=== PATIENT | female | born 1985 | race Asian ===

== ENCOUNTER 2017-02-13 06:03 | Inpatient (IN) | payer MEDICAID, OTHER ==
[2017-02-13] MEDS: Lactated Ringers 1,000 ML IV SCH ×5 (06:00→21:31)
[~2017-02-13 06:03] MED LIST: Citric Acid/Sodium Citrate Solution 30 ML Cup PO ONE; Sodium Chloride 0.9% 10 ML Syringe FLUSH PRN; ceFAZolin 2 GM in Premix Bag 1 BAG IV ONE
[2017-02-13] MEDS ORDERED: Oxytocin/Normal Saline 60 UNIT/1,000 ML BAG ONE (07:07)
[2017-02-13] MEDS ORDERED: Acetaminophen/oxyCODONE 325-5 MG Tab PO PRN (09:27)
[2017-02-13] MEDS ORDERED: Misoprostol 400 MCG (4 X 100 MCG TAB) RECTAL PRN (09:27)
[2017-02-13] MEDS ORDERED: Methylergonovine 0.2 MG/1 ML Amp IM PRN (09:27)
[2017-02-13] MEDS ORDERED: Acetaminophen 325 MG Tab PO PRN (09:27)
[2017-02-13] MEDS ORDERED: ePHEDrine 50 MG/ML SDV IVPUSH PRN (09:27)
[2017-02-13] MEDS ORDERED: Naloxone 2 MG/2 ML Syringe IVPUSH PRN (09:27)
[2017-02-13] MEDS ORDERED: Ondansetron 4 MG/2 ML SDV IV PRN (09:27)
[2017-02-13] MEDS ORDERED: diphenhydrAMINE 50 MG/ML SDV IVPUSH PRN (09:27)
[2017-02-13] MEDS ORDERED: Carboprost Tromethamine 250 MCG/1 ML Amp IM ONE (09:27)
[2017-02-13] MEDS: Prenatal Multivitamin with Calcium/Folic Acid/Iron Tab PO SCH (10:44)
[2017-02-13] MEDS: Ferrous Sulfate 325 MG Tab PO SCH ×2 (10:44→20:59)
[2017-02-13] MEDS ORDERED: Oxytocin/Normal Saline 30 UNIT/500 ML BAG IV SCH (11:15)
[2017-02-13] MEDS: Ketorolac 30 MG/ML SDV IVPUSH SCH ×2 (14:59→21:15)
[2017-02-13] MEDS: ceFAZolin 1 GM in Premix Bag 1 BAG IV SCH ×2 (15:00→21:17)
--- NOTE | 2017-02-13 15:27 | OR ---
DATE: 02/13/2017 PREPROCEDURE DIAGNOSES: 1. 39 and 4/7 weeks intrauterine based on last menstrual. 2. 4, para 2-0-1-2. 3. History of x1. 4. History of vaginal after x1. 5. Declined another trial of labor after and elected for planned repeat . 6. Anemia of . 7. Abnormal glucose tolerance testing, which was ruled out for gestational diabetes at 37 weeks. 8. History of spontaneous x1. 9. Blood type O positive, rubella immune and group B strep negative. POSTOPERATIVE DIAGNOSIS: 1. 39 and 4/7 weeks intrauterine based on last menstrual. 2. 4, para 2-0-1-2. 3. History of x1. 4. History of vaginal after x1. 5. Declined another trial of labor after and elected for planned repeat . 6. Anemia of . 7. Abnormal glucose tolerance testing, which was ruled out for gestational diabetes at 37 weeks. 8. History of spontaneous x1. 9. Blood type O positive, rubella immune and group B strep negative. 10. Extensive scar tissue greatly complicating surgery. 11. Intrapartum hemorrhage. 12. Delivery viable female . BRIEF HISTORY: A 31-year-old female with the above-listed diagnoses, presented to the hospital for planned elective repeat section and reported no problems or complications since her preop procedure had been performed. CONSENT: Discussed with her and her the risk of infection and plan for preoperative antibiotics. Anticipation of bleeding would be controlled; however, bleeding could be severe enough to warrant blood transfusion and it has its inherent risks, including passage of blood borne diseases or having transfusion reactions and would only be performed if necessary. Risk of surgical procedure including, but not limited to an inadvertent injury of any internal organs and adjacent structures including, but not limited to bowel, bladder, ureters, fallopian tubes, ovaries, urethra, uterus, large blood vessels, nerves, veins, other adjacent structures, and even potential injury to the baby, potential for complications requiring additional surgery to repair those and even potential risk of transfer for her and/or the baby to a higher level of care and remote risk of . Their questions were answered and consent forms were signed and can be found on the chart. SURGEON: Stella Dietrich MD. GARBAGE PICK UP MAN: Amauri Palomo MD. SECOND ADOBE CQ DEVELOPER: Clara Gupta MD. INDICATION: Elective repeat section at term. PROCEDURE IN DETAIL: The patient was brought to the operating room and spinal anesthesia obtained. She was laid in the dorsal supine position with leftward tilt. Abdomen prepped and prior Pfannenstiel skin incision marked and sterile dressings were applied. Skin tested and then a Pfannenstiel skin incision made over the previous scar and carried down to the underlying fascia with cautery and blunt finger dissection. The fascia incised and extended bilaterally to try and obtain adequate visualization of the uterus; however, there was extensive scar tissue noted. Fascia was scarred to the rectus muscles and the muscles to the peritoneum. The peritoneal lining was adherent to the uterine serosa and we were having difficulties with dissection. Within the peritoneal layer there were thin muscle fibers assumed to be from the uterus. I therefore extended the incision off to the patient's right hand side and encountered some fairly large blood vessels on the anterior uterine scarred area and wished to avoid these at this time. Dr. aPlomo was called to join the case, Dr. Gupta then stepped away from the table to be able to attend to the baby, while I continued the case with Dr. Palomo. I then went to the patient's left side. Dr. Palomo assumed the right side. He continued to try and free up the uterus hysterotomy site with continued cautery and blunt finger dissection and ultimately felt that we were actually causing more separation of the anterior uterine wall because of the scarring to the peritoneal. During this time the large blood vessels on the patient's right side were also disrupted and caused bleeding difficulties. Dr. Palomo addressed these with a combination of clips and suture ligation.We then decided to make a vertical skin incision, which I did with a scalpel from the umbilicus all the way down to meet up with the Pfannenstiel skin incision. This was then carried down through the subcutaneous tissues and through the fascia using cautery. Once this was performed, we were able to see the upper segment of the uterus. There were additional areas of adhesion present from the omentum and overlying peritoneal cavity, but this was much more normal in appearance. We were able to continue the dissection of the peritoneal layer from the uterus in the inferior direction. There was need to dissect the musculature on the right side. The blood vessels on the maternal right side, where again problematic, and addressed with clips and suture ligation as necessary, approximate 8 to 10 clips in total and 5 suture ligations approximately. Once all of the scar tissue was reduced in this area, we were able to locate proper location for the low transverse uterine incision, which I carried out with scalpel. in final penetration into the uterus was with finger penetration and then extended bilaterally using the Sheffield method. Amniotic fluid sac was intact and that was ruptured with hemostats and then the baby's head brought up through the hysterotomy site and the remainder of the delivered readily thereafter. Nose and mouth were bulb suctioned. Three-vessel umbilical cord was doubly clamped and cut, and baby taken over to the warmer for further evaluation. Cord blood sample obtained. Placenta was delivered by cord traction and concomitant uterine massage. Uterus then cleaned with dry lap sponge. The hysterotomy site was then closed with a running lock suture of 0 Vicryl in the usual fashion. We then turned attention to the blood vessels on the right side to verify hemostasis and address several small bleeders on the anterior uterine wall. Most of these were handled well with cautery; however, I did need to place an additional 8 [id number] sutures in addition to the clips that had previously been placed to control bleeding of the anterior uterus. Hysterotomy site was reinspected and there were couple of small areas of bleeding, so a second imbricating layer of 0-Vicryl was performed and good hemostasis achieved. Uterine area and surgical field were irrigated and felt to be hemostatic. The paracolic gutters were cleared of any clots and debris, and Dr. Palomo then closed the peritoneal layer starting at the level of the umbilicus and carrying that down to the midline and then extending bilaterally. Four by 2 cm area of rectus muscles on the maternal right did not have adequate blood supply and were bound to become necrotic, therefore this was excised. He closed the fascia again starting at the umbilicus proceeding inferiorly using interrupted runs of 2-0 Prolene taking about 2 or 3 bites with the each short run of suture just before he got to the apex. He then turned his attention to the maternal left transverse fascial incision, and put an interrupted running stitch there. I then did an interrupted running stitch of the maternal right transverse fascial incision and each carried towards the midline. The remainder of the fascia was then closed with additional running interrupted stitches by Dr. Palomo. This layer was then irrigated. He undermined as needed to free up the adipose tissue and reapproximate the tissues well. The skin was then closed with elizabeth, and the patient had tolerated the procedure well. Pressure dressings applied. The patient will be taken to the PACU for recovery. COMPLICATIONS: Encountering of extreme amount of excessive scar tissue requiring vertical extension of the incision on the skin and subcutaneous tissues and inclusion of the general surgeon to help with the case. Also, had to remove a portion of the rectus muscles on the right side as they were involved in the scar tissue and blood supply had to be cut off; therefore, this tissue would become necrotic. If unplanned future should occur delivering physician may consider vaginal after if she is felt to be a good candidate. If the baby tolerates things well, would be the prefer route of delivery.However, if there were intolerance and urgent or emergent delivery necessary her scar tissue would be problematic. I would also recommend future be approached so as to be able to dissect superior to inferior and I would anticipate better visualization. ESTIMATED BLOOD LOSS: 1200 mL. FLUIDS: 1200 mL of crystalloids. URINE OUTPUT: 300 mL. FINDINGS: Start time 8:15, baby delivered at 8:51 a.m., and stop time at 9:43. Baby girl, scores of 9 and 9. Weight 6 pounds 12 ounces, 3065 g. DISPOSITION: Mother will remain in the PACU until recovery. Baby will be taken to the nursery. [facility] /[id number] SANDRA
[2017-02-14] MEDS: Lactated Ringers 1,000 ML IV SCH ×2 (02:46→07:14)
[2017-02-14] MEDS: Ketorolac 30 MG/ML SDV IVPUSH SCH (03:12)
[2017-02-14] MEDS: ceFAZolin 1 GM in Premix Bag 1 BAG IV SCH (06:07)
[2017-02-14] MEDS: Ferrous Sulfate 325 MG Tab PO SCH ×3 (09:18→20:18)
[2017-02-14] MEDS: Docusate Sodium 100 MG Cap PO PRN ×2 (09:18→20:18)
[2017-02-14] MEDS: Acetaminophen/oxyCODONE 325-5 MG Tab PO PRN ×3 (09:18→18:09)
[2017-02-14] MEDS: Prenatal Multivitamin with Calcium/Folic Acid/Iron Tab PO SCH (09:18)
--- NOTE | 2017-02-14 10:19 | PN ---
DATE: 02/14/2017 Postoperative day #1. SUBJECTIVE: A 31-year-old 4, now para 3-0-1-3, postoperative day #1, status post complicated section because of severe amounts of scar tissue. The patient has not been out of bed throughout the night, and still has a Heller catheter in place. Nurses concerned of concentrated urine and have had to give her a 2nd fluid bolus. She is denying any chest pain or shortness of breath. She is passing flatus. Reports that the pain is currently controlled. Bottle feeding her baby, and denies other acute concerns at this time. OBJECTIVE: Vital Signs: Temperature is 99.7, pulse 100, blood pressure 89/53, respiratory rate of 16. Heart: Regular without obvious murmur. Lungs: Clear to auscultation bilaterally. Abdomen: Soft. Incisional tenderness is present. Bowel sounds are hypoactive, but present. Dressing was replaced yesterday because of some strike through bleeding, but is now clean, dry, and intact. Extremities: Trace edema. No tenderness noted. She did have some DIONNA hose, and SCDs on. LABORATORY DATA: Last night's hemoglobin was 8.2, hematocrit 25.8. This morning, hemoglobin 7.0, hematocrit 22.7. ASSESSMENT: 1. Postoperative day #1 status post complicated section. 2. Anemia of acute blood loss. 3. History of abnormal glucose tolerance test, but blood sugars well controlled with diet alone. PLAN: At this time, continue normal postoperative cares. We will have her with the abdominal binder still. We will stop the antibiotics after 24 hours . Monitor closely for any signs or symptoms of infection. Anticipate discharge home on day #3 if things are going well. May need to hold her until day #4 there are any complications that arise. The patient and her are self-pay and I have advised them that I will be contacting the business office at both [facility] and [facility] to see what they can get as far as some additional assistance as with complications intraoperatively, the cost this procedure will be much more than they may have been anticipated. Their questions have been answered. Later today, she will be able to get up and ambulate. We will see how she does at that time and consider blood transfusion if she is symptomatic. Otherwise, Heller catheter was inspected and she has some orange urine consistent with urine concentration. There were no blood clots or significant amount of blood present. [facility] /[id number]
[2017-02-14] MEDS: Ibuprofen 800 MG Tab PO PRN ×2 (11:05→20:18)
[2017-02-14] MEDS ORDERED: diphenhydrAMINE 25 MG Tab PO ONE (11:24)
--- NOTE | 2017-02-14 13:53 | PCM.SN ---
- Free Text/Narrative Note: Post op. Pt alert and oriented. Pt is tachycardic and hypotensive but maintaining MAP > 60. HGB has dropped to 7.0 MD is aware. Pt refusing blood transfusion. Pt denies RAHMAN, back ache, parasthesias or nausea. Pain controlled. Tolerating PO well. No anesthesia concerns noted.
[2017-02-14] MEDS ORDERED: Oxytocin/Normal Saline 30 UNIT/500 ML BAG IV ONE (14:08)
[2017-02-14] MEDS: ceFAZolin 1 GM Vial IVPUSH SCH ×2 (14:44→22:13)
[2017-02-14] MEDS ORDERED: Hetastarch in NS 500 ML IV ONE (15:15)
[2017-02-14] MEDS ORDERED: Ketorolac 30 MG/ML SDV IVPUSH ONE (15:27)
[2017-02-14] MEDS ORDERED: Ondansetron 4 MG/2 ML SDV IV ONE (15:27)
[2017-02-14] MEDS ORDERED: fentaNYL 100 MCG/2 ML SDV IV ONE (15:27)
[2017-02-14] MEDS ORDERED: Lactated Ringers 1,000 ML IV ONE (15:27)
[2017-02-14] MEDS ORDERED: Propofol 200 MG/20 ML SDV IV ONE (15:27)
[2017-02-14] MEDS ORDERED: Morphine PF 1 MG/ML Amp ONE (15:27)
[2017-02-14] MEDS ORDERED: diphenhydrAMINE 50 MG/ML SDV IV ONE (15:27)
[2017-02-14] MEDS: Simethicone 80 MG Tab.Chew PO PRN (20:18)
[2017-02-15] MEDS: Acetaminophen/oxyCODONE 325-5 MG Tab PO PRN ×5 (00:55→16:32)
[2017-02-15] MEDS: Ibuprofen 800 MG Tab PO PRN ×2 (04:59→14:38)
[2017-02-15] MEDS: ceFAZolin 1 GM Vial IVPUSH SCH ×3 (05:00→21:05)
[2017-02-15] MEDS: Prenatal Multivitamin with Calcium/Folic Acid/Iron Tab PO SCH (08:31)
[2017-02-15] MEDS: Ferrous Sulfate 325 MG Tab PO SCH ×3 (08:31→20:53)
[2017-02-15] MEDS: Simethicone 80 MG Tab.Chew PO PRN ×4 (08:31→20:52)
[2017-02-15] MEDS: Docusate Sodium 100 MG Cap PO PRN ×2 (08:31→20:52)
--- NOTE | 2017-02-15 23:38 | PN ---
DATE: 02/15/2017 The patient was seen at 7:30 this morning. SUBJECTIVE: A 31-year-old female, status post complicated repeat low-transverse section via inverted-T skin incision, postoperative day #2, is doing fairly well. She has now been up and doing some ambulating, but still feels weak, tired. Denying shortness of breath this morning. No chest pain. Still declining blood transfusion at this time as she is fearful it will somehow change her personality saucedo. Denies any significant vaginal bleeding. Incisional pain is noted to be a little bit more today, but she is also due for her pain medications. Heller catheter has been removed. She voided 300 mL just before I came in the room. She is passing flatus and tolerating a regular diet. She has not had any fever over the last 24 hours. She has not yet showered and the dressing has not been changed again in the last 24 hours. Low grade fever over night. OBJECTIVE: Vital Signs: Temperature 98.9, pulse 103, blood pressure 116/70, respiratory rate of 18, O2 saturations 99% on room air. Tmax over night 100.6F. Heart: Mildly tachycardic. No obvious murmurs appreciated. Lungs: Clear to auscultation bilaterally. Abdomen: Mildly distended. Dressing is clean, dry, and intact. Bowel sounds are hyperactive and tympanic. Skin without erythema, no drainage. Extremities: Trace edema bilaterally. No erythema or tenderness noted. LABORATORY DATA: White blood cell count 7.9, hemoglobin 7.1, platelets 192. ASSESSMENT: 1. Postoperative day #2 status post complicated section. 2. Anemia of acute blood loss due to intrapartum hemorrhage. 3. History of abnormal blood glucose, but blood sugars had been well controlled. 4. Symptomatic anemia and currently refusing blood transfusion. PLAN: I discussed with Anesthesia and Hydroxyethyl Starch was given, which did result in some improvement yesterday, but today she feels like she is doing pretty good and is continuing to decline the blood transfusion. I discussed this with her and her at length and although there is risk associated with severe anemia, they still do not want transfusion and at this time, I do not feel I need to be overly aggressive in pursuing it and will allow her to continue to see how she does on her own. We will continue to have her ambulate. She can take a shower later today and change out the dressing. I came back and saw the patient again over the lunch hour and at that time, she reported that she was having more shortness of breath and fatigue, even having difficulties taking care of her baby, and she was now willing to receive 1 unit of blood transfusion, but declined two. Discussed with her indications, risks, benefits, and alternatives of blood transfusion and agreed that we should proceed with this and that was initiated for her. We also removed the dressing and the incision is clean, dry, and intact, it was washed off and a new bandage applied. Anticipate that she will be taking a shower later on this evening and we can wash it more thoroughly at that time as well. She is looking forward to discharge home tomorrow as long as things continue to improve. Antibiotics will be continued in the hospital and switched to orals upon discharge. She is at higher risk due to the complications and prolonged surgery time. [facility] /[id number] SANDRA
[2017-02-16] MEDS: ceFAZolin 1 GM Vial IVPUSH SCH (05:59)
[2017-02-16] MEDS: Acetaminophen/oxyCODONE 325-5 MG Tab PO PRN (06:14)
[2017-02-16] MEDS: Ibuprofen 800 MG Tab PO PRN (06:15)
[2017-02-16] MEDS: Docusate Sodium 100 MG Cap PO PRN (08:17)
[2017-02-16] MEDS: Ferrous Sulfate 325 MG Tab PO SCH (08:17)
[2017-02-16] MEDS: Prenatal Multivitamin with Calcium/Folic Acid/Iron Tab PO SCH (08:17)
--- NOTE | 2017-02-19 11:33 | DISCH ---
ADMITTING DIAGNOSES: 1. A 39 and 4/7 weeks gestation. 2. 4, para 2-0-1-2. 3. Abnormal glucose tolerance test of , but diet controlled. 4. History of x1. 5. Anemia of . 6. History of x1. 7. History of vaginal after x1. DISCHARGE DIAGNOSES: 1. A 39 and 4/7 weeks gestation. 2. 4, para 3-0-1-3. 3. Abnormal glucose tolerance test of , but diet controlled. 4. History of x1. 5. Anemia of . 6. History of x1. 7. History of vaginal after x1. 8. Status post elective and planned section. 9. Intraoperative complications requiring extensive taking down of scar tissue, inverted T skin incision and larger than estimated normal blood loss. See operative report for details. 10.Postoperative fever. 11.Anemia of blood loss, initially refusing transfusion. 12.Status post transfusion of 1 unit of blood. BRIEF HISTORY: A 31-year-old female with the above-listed diagnoses, admitted to the hospital for planned elective section which was initiated in the usual fashion, however, there was a very severe scar tissue encountered making it impossible to go into the normal route and we needed to extend the skin incision superiorly and approach the uterus from the top down, ultimately this was quite complicated, but after surgery was done she was recovering well. See operative report and progress notes for details. Mother is bottle feeding. HOSPITAL COURSE: Initially not wanting to get up and move around very much, and also having difficulties with fever and pain control. Gradual improvement was made. She was able to tolerate a regular diet, was starting to ambulate, but having dizziness, ultimately she did receive 1 blood unit of transfusion and did not want the second, this improved her symptoms as she was still having some mild dizziness. Incision had been checked daily and was not having any bleeding, oozing, or purulent drainage. She had a low-grade fever with a T-max of around 100.6, and was treated with continued Ancef antibiotics, and discharged home on oral Augmentin. There was never any sign or symptom of this being from a pulmonary bladder or other etiology. No true source of infection identified either, and her maximum white blood cell count was 9.3 on admission, and then down to 8.9 after delivery. DISCHARGE CONDITION: Good. She is meeting discharge criteria and overall things have gone well. PHYSICAL EXAMINATION: Vital Signs: Temperature is 99.3, pulse 112, blood pressure 104/67, respiratory rate of 16, heart is regular without murmur. Lungs: Clear to auscultation bilaterally. Abdomen: Distended, but non tympanic. Bowel sounds are active. She reports passing flatus as well as having had bowel movements. Tenderness along the incision as would be expected. Incision site itself a elizabeth intact. No erythema, drainage, or signs of infection at this time. Extremities. Trace edema. No erythema or tenderness noted. FINAL LABORATORY DATA: White blood cell count 7.9, hemoglobin 7.1, and platelets 119. This was not rechecked after her blood transfusion as we know her hemoglobin had increased, and she was refusing second transfusion. DISPOSITION: Home with family. MEDICATIONS: 1. Ibuprofen 600 mg every 6 hours as needed for pain. 2. Percocet 5/325 one to two tablets every 4-6 hours as needed for pain. 3. Colace 100 mg twice daily as needed for constipation. 4. Iron 325 mg 2 to 3 times daily as needed for anemia. FOLLOWUP: She will be seen in the office in about 7-10 days for postop check and staple removal. DISCHARGE INSTRUCTIONS: Routine post- section instructions were provided with specific focus on monitoring for signs and symptoms of any ongoing infection, blood loss, or other concerns. Encouraged to continue with her abdominal binder. Wound care instructions were provided. All of her questions were answered and she felt comfortable with the plan. [facility] /[id number]
== END 2017-02-16 10:00 | disposition home or self-care (01) | DRG 765 ==
LOC: DL.OB 06:03 → OBSVTOIN 08:51
PROVIDERS: ADMIT Family Medicine; ATTEND Family Medicine
PROC: 10D00Z1 Extraction of Products of Conception, Low, Open Approach (ICD-10-PCS; principal; 2017-02-13)
PROC: 30253N1 (ICD-10-PCS; 2017-02-14)
DX: O34.211 Maternal care for low transverse scar from previous cesarean delivery (principal); O67.0 Intrapartum hemorrhage with coagulation defect; O86.4 Pyrexia of unknown origin following delivery; D62 Acute posthemorrhagic anemia; O99.814 Abnormal glucose complicating childbirth; O99.02 Anemia complicating childbirth; Z37.0 Single live birth; Z3A.39 39 weeks gestation of pregnancy
CPT/HCPCS: 01961; 36415; 36430; 85014; 85018; 85025; 85027; 86850; 86900; 86901; 86920; 86922; 94010; A9270-GY; J0690; J1200; J1885; J2274; J2405; J2590; J2704; J3010; J7120; P9016